=== PATIENT | female | born 1955 | race Hispanic/Latino ===

== ENCOUNTER 2020-01-12 09:00 | Inpatient (IN) | payer MEDICARE ==
[~2020-01-12] VITALS: Ht 154.9 cm; Wt 64.0 kg
[2020-02-29 11:47] LABS: BASOPHILS % (AUTO) 0.8 % (0.0-5.0); EOSINOPHILS % (AUTO) 1.8 % (0.0-8.0); HEMATOCRIT 42.4 % (36-48); LYMPHOCYTES % (AUTO) 31.1 % (21.0-51.0); MEAN CORPUSCULAR HEMOGLOBIN 31.5 pg (27.0-33.0); MEAN CORPUSCULAR HGB CONC 33.3 g/dL (32.0-36.0); MEAN CORPUSCULAR VOLUME 94.6 fL (79-99); MONOCYTES % (AUTO) 6.9 % (3.0-13.0); NEUTROPHILS % (AUTO) 59.3 % (40.0-77.0); PLATELET COUNT (AUTO) 249 K/uL (130-400); RED BLOOD CELL COUNT(AUTO) 4.48 MIL/uL (4.00-5.50); RED CELL DISTRIBUTION WIDTH 13.8 % (11.0-15.5); WHITE BLOOD COUNT (AUTO) 7.4 K/uL (4.8-10.8)
[2020-02-29 12:10] LABS: CREATININE 0.7 mg/dL (0.5-1.5); POTASSIUM 3.7 mmol/L (3.5-5.1)
[2020-02-29 12:28] LABS: INR 0.92 (0.85-1.15); PROTHROMBIN TIME 9.6 SEC (9.6-11.6)
[2020-02-29 14:42] VITALS: BP 151/68
[2020-03-01 09:16] LABS: APPEARANCE,URINE CLEAR (CLEAR); BILIRUBIN,URINE NEGATIVE (NEGATIVE); COLOR,URINE YELLOW (YELLOW); GLUCOSE, URINE (UA) NEGATIVE (NEGATIVE); KETONES,URINE NEGATIVE (NEGATIVE); LEUKOCYTE ESTERASE ,URINE NEGATIVE (NEGATIVE); NITRATE,URINE NEGATIVE (NEGATIVE); OCCULT BLOOD,URINE NEGATIVE (NEGATIVE); PROTEIN,URINE NEGATIVE (NEGATIVE); UROBILINOGEN,URINE 0.2 mg/dL (0.2-1.0)
[2020-03-02] MEDS ORDERED: IBUP-2077 PO (15:06)
[2020-03-02] MEDS ORDERED: LEVO50TA11 PO (15:06)
[2020-03-02] MEDS ORDERED: FLUO20TA29 PO (15:06)
[2020-03-05] VITALS (20 sets, daily range): BP systolic 101–143; BP diastolic 42–76
[2020-03-05] MEDS: CEFAZOLIN SODIUM 1 GM VIAL IVP SCH ×3 (06:00→17:59)
[2020-03-05] MEDS ORDERED: LACTATED RINGERS 1000ML 1,000 ML IV ONE (07:45)
[2020-03-05] MEDS ORDERED: SUCCINYLCHOLINE CHLORIDE 20 MG/ML 10 ML VIAL ONE (09:04)
[2020-03-05] MEDS ORDERED: LIDOCAINE PF 2% 5ML ABBOJECT ONE (09:04)
[2020-03-05] MEDS ORDERED: DEXAMETHASONE SOD PHOSPHATE 10MG/ML 1ML VIAL ONE (09:05)
[2020-03-05] MEDS ORDERED: MIDAZOLAM HCL 1 MG/ML 2ML VIAL ONE (09:05)
[2020-03-05] MEDS ORDERED: ONDANSETRON HCL 4 MG/2 ML VIAL ONE (09:05)
[2020-03-05] MEDS ORDERED: GLYCOPYRROLATE 1 MG/5 ML SYRINGE ONE (09:05)
[2020-03-05] MEDS ORDERED: PROPOFOL 10 MG/ML 20ML VIAL IV ONE (09:05)
[2020-03-05] MEDS ORDERED: NEOSTIGMINE 5MG/5ML SYR IV ONE (09:05)
[2020-03-05] MEDS ORDERED: ROCURONIUM 10MG/1ML SYR 10 MG/ML ML ONE ×2 (09:06→11:25)
[2020-03-05] MEDS ORDERED: FENTANYL CITRATE PF 50 MCG/1 ML 2ML VIAL ONE (09:06)
[2020-03-05] MEDS ORDERED: TRANEXAMIC ACID 1000MG/10ML ONE ×2 (09:09→12:20)
[2020-03-05] MEDS ORDERED: EPHEDRINE SULFATE 50 MG/ML AMPULE ONE (09:39)
[2020-03-05] MEDS: CEFAZOLIN SODIUM 1 GM VIAL ONE ×2 (10:21→10:37)
[2020-03-05] MEDS ORDERED: FENTANYL CITRATE PF 50 MCG/1 ML 5ML AMP IV ONE (10:38)
[2020-03-05] MEDS: SODIUM CHLORIDE 0.9% 1000ML 1,000 ML IV SCH (12:00)
[2020-03-05] MEDS ORDERED: POTASSIUM CHLORIDE 10% ELIXIR 20 MEQ/15 ML UDCUP PO PRN (12:00)
[2020-03-05] MEDS ORDERED: FERROUS FUMARATE 324 MG TABLET PO PRN (12:00)
[2020-03-05] MEDS: ACETAMINOPHEN EXTRA STRENGTH 500 MG TABLET PO SCH ×2 (12:00→20:48)
[2020-03-05] MEDS ORDERED: KETOROLAC TROMETHAMINE 15MG/ML IV PRN (12:00)
[2020-03-05] MEDS ORDERED: LIDOCAINE HCL-MPF 1% 2ML VIAL IV PRN (12:00)
[2020-03-05] MEDS ORDERED: POTASSIUM CHLORIDE 20MEQ/100ML 100 ML IV PRN (12:00)
[2020-03-05] MEDS ORDERED: DiphenhydrAMINE HCL 50 MG/ML VIAL IVP PRN (12:00)
[2020-03-05] MEDS ORDERED: OXYCODONE HCL 5 MG TAB PO PRN (12:00)
[2020-03-05] MEDS ORDERED: CALCIUM CARBONATE 500 MG TABLET PO PRN (12:00)
[2020-03-05] MEDS ORDERED: TRAMADOL HCL 50 MG TABLET PO PRN (12:00)
[2020-03-05] MEDS ORDERED: ONDANSETRON HCL 4 MG/2 ML VIAL IVP PRN (12:00)
[2020-03-05] MEDS ORDERED: TEMAZEPAM 15 MG CAPSULE PO PRN (12:00)
[2020-03-05] MEDS ORDERED: POTASSIUM CHLORIDE 20 MEQ ERTAB PO PRN (12:00)
[2020-03-05] MEDS: PREGABALIN 25 MG CAP PO SCH (20:48)
[2020-03-05] MEDS: FAMOTIDINE 20MG TAB 20 MG TAB PO SCH (20:48)
[2020-03-05] MEDS: ASPIRIN 81MG TAB.CHEW PO SCH (20:48)
[2020-03-05] MEDS: CELECOXIB 200 MG CAP PO SCH (20:48)
[2020-03-06] MEDS: CEFAZOLIN SODIUM 1 GM VIAL IVP SCH (00:04)
[2020-03-06 03:44] LABS: HEMATOCRIT 32.4 % (36-48); MEAN CORPUSCULAR HEMOGLOBIN 30.7 pg (27.0-33.0); MEAN CORPUSCULAR VOLUME 93.1 fL (79-99); RED BLOOD CELL COUNT(AUTO) 3.48 MIL/uL (4.00-5.50); RED CELL DISTRIBUTION WIDTH 13.9 % (11.0-15.5); WHITE BLOOD COUNT (AUTO) 11.3 K/uL (4.8-10.8)
[2020-03-06 03:50] VITALS: BP 115/58
[2020-03-06 03:59] LABS: CREATININE 0.5 mg/dL (0.5-1.5)
[2020-03-06] MEDS ORDERED: LEVOTHYROXINE 50 MCG TABLET ONE (04:51)
[2020-03-06] MEDS: ACETAMINOPHEN EXTRA STRENGTH 500 MG TABLET PO SCH ×3 (05:00→21:18)
[2020-03-06] MEDS: LEVOTHYROXINE 50 MCG TABLET PO SCH (06:30)
[2020-03-06] MEDS: SODIUM CHLORIDE 0.9% 1000ML 1,000 ML IV SCH (08:00)
[2020-03-06 08:42] VITALS: BP 119/59
[2020-03-06] MEDS: POLYETHYLENE GLYCOL 3350 17 GM POWD.PACK PO SCH (09:57)
[2020-03-06] MEDS: FAMOTIDINE 20MG TAB 20 MG TAB PO SCH ×2 (09:57→21:18)
[2020-03-06] MEDS: FLUOXETINE HCL 20 MG CAPSULE PO SCH (09:57)
[2020-03-06] MEDS: ASPIRIN 81MG TAB.CHEW PO SCH ×2 (09:57→21:18)
[2020-03-06] MEDS: CELECOXIB 200 MG CAP PO SCH ×2 (09:57→21:18)
[2020-03-06] MEDS: PREGABALIN 25 MG CAP PO SCH ×2 (09:57→21:18)
[2020-03-06 11:38] VITALS: BP 118/68
--- NOTE | 2020-03-06 15:25 | NUR ---
INITIAL ASSESSMENT WITH PATIENT AT BEDSIDE- MET WITH PATIENT FOR D/C PLANNING. LIVES WITH SPOUSE, HOME SAFE & ACCESSIBLE, NO DME, SPOUSE DRIVES VERBAL CONSENT FOR HH AND DME IN NETWORK CHECKED WITH AND [facility], BOTH MATEO HARRY, WILL SEND REFERRAL Addendum: 03/06/20 at 1530 by DI CLAYTON RN CM Amended: Links added.
[2020-03-06] MEDS: OXYCODONE HCL 5 MG TAB PO PRN (17:21)
[2020-03-06 20:16] VITALS: BP 119/51
[2020-03-07 00:16] VITALS: BP 114/50
[2020-03-07 04:16] VITALS: BP 106/56
[2020-03-07] MEDS: LEVOTHYROXINE 50 MCG TABLET PO SCH (06:20)
[2020-03-07] MEDS: ACETAMINOPHEN EXTRA STRENGTH 500 MG TABLET PO SCH ×2 (06:20→11:28)
[2020-03-07 08:14] VITALS: BP 124/58
[2020-03-07] MEDS: POLYETHYLENE GLYCOL 3350 17 GM POWD.PACK PO SCH (08:43)
[2020-03-07] MEDS: OXYCODONE HCL 5 MG TAB PO PRN ×2 (08:43→12:50)
[2020-03-07] MEDS: CELECOXIB 200 MG CAP PO SCH (08:47)
[2020-03-07] MEDS: ASPIRIN 81MG TAB.CHEW PO SCH (08:47)
[2020-03-07] MEDS: FLUOXETINE HCL 20 MG CAPSULE PO SCH (08:48)
[2020-03-07] MEDS: FAMOTIDINE 20MG TAB 20 MG TAB PO SCH (08:48)
[2020-03-07] MEDS: PREGABALIN 25 MG CAP PO SCH (08:48)
[2020-03-07 12:07] VITALS: BP 133/63
--- NOTE | 2020-03-07 12:08 | NUR ---
ACCEPTED AT [facility] FOR START TOMORROW FOLLOWED UP WITH FRANCK, WILL DELIVER BRIAN TO DAY. CHART TAGGED Addendum: 03/07/20 at 1213 by DI CLAYTON RN CM Amended: Links added.
[2020-03-07] MEDS ORDERED: HYDR-4457 PO (14:56)
[2020-03-07] MEDS ORDERED: ASPI-1005 PO (14:56)
--- NOTE | 2020-03-07 16:00 | NUR ---
SPOKE WITH PT'S DAUGHTER RE D/C HOME AND CIRCULAR SAW FILER JEROMY, DAUGHTER, SAID SHE WOULD NOT BE ABLE TO COME FOR PATIENT UNTIL AFTER 7:30P.M. DUE TO HER WORK. DAUGHTER SAID SHE WOULD PICK HER UP AFTER 7:30 P.M.
[2020-03-07 16:30] VITALS: BP 103/52
--- NOTE | 2020-03-07 16:35 | NUR ---
DISCHARGE INSTRUCTIONS GIVEN AND EXPLAINED UTILIZING TEACH BACK METHOD, VERBALIZED UNDERSTANDING. DISCHARGE WITH [facility]. REPORT GIVEN TO JESSIE CRAMER RN. [phone] METZGER ON 03/28/20 @10:15 A.M. CALL OFFICE FOR ANY CONCERNS 02/02. [phone] RESUME YOUR PREVIOUS HOME DIET. RESUME YOUR PREVIOUS HOME MEDS IF ANY INSTRUCTED BY STAFF. PLEASE TAKE PRESCRIPTIONS MEDS INSTRUCTED. IF YOU NEED A PRESCRIPTION REFILL ON YOUR PAIN MEDS. PLEASE CALL OFFICE A FEW DAYS BEFORE YOU TAKE YOUR LAST PAIN PILL. NURSE TO REMOVE DRESSING ON 03/12/20. CONTINUE DAILY DRESSING CHANGES IF NEEDED AFTER 1ST REMOVAL. MAY SHOWER AND GET DRESSING WET. FOLLOW NURSE INSTRUCTIONS TO PROTECT DRESSING'S BATTERY. AMBULATE TOLERATED WITH THE USE OF CRUTCHES OR WALKER UNTIL YOU'RE ABLE TO WALK INDEPENDENTLY. WHEN RESTING, KEEP YOUR LEG ELEVATED BUT AVOID PLACING PILLOW(S) UNDER YOUR KNEES. FOLLOW PHYSICAL THERAPIST RECOMMENDATIONS/INSTRUCTIONS. GAIT TRAINING WITH WALKER AND WEIGHT BEARING TOLERATED. ADVANCE TO CANE PER NURSE/THERAPIST DISCRETION. ACTIVE/PASSIVE ASSISTED FLEXION/EXTENSION EXERCISES TO OPERATIVE KNEE(S). DO QUADRICEP/HAMSTRING STRENGTHENING EXERCISES TO OPERATIVE KNEE(S). MODALITIES PER PHYSICAL THERAPIST DISCRETION. CALL 911 OR GO TO EMERGENCY ROOM IF YOU HAVE ANY CHEST PAIN/DISCOMFORT, SHORTNESS OF BREATH/DIFFICULTY BREATHING OR NEEDED. EXPLAINED PROCEDURE FOR CHANGING DRESSING. VERBALIZED UNDERSTANDING. REMOVED OLD CRISTINE DRESSING, NO ACTIVE DRAINAGE. CLEANSED WITH BETADINE. APPLIED CRISTINE DRESSING. TOLERATED PROCEDURE WELL.
--- NOTE | 2020-03-07 19:30 | NUR ---
SPOKE WITH DAUGHTER, JEROMY SAID SHE WAS ON HER WAY TO DESK DIRECTOR HER MOM. DISCHARGE INSTRUCTIONS GIVEN AND EXPLAINED UTILIZING TEACH BACK METHOD REGARDING PATIENT, VERBALIZED UNDERSTANDING.
[2020-03-08] MEDS ORDERED: BISACODYL 10 MG SUPP.RECT RC PRN (12:00)
== END 2020-03-07 20:35 | disposition home health service (06) | DRG 470 ==
LOC: EDSTATUS 02-29 10:00 → DAHIP 03-05 07:21 → 3AH 03-05 13:08
PROVIDERS: ADMIT Orthopaedic Surgery; ATTEND Orthopaedic Surgery
PROC: 0SRC0J9 Replacement of Right Knee Joint with Synthetic Substitute, Cemented, Open Approach (ICD-10-PCS; principal; 2020-03-05 09:23)
DX: M17.11 Unilateral primary osteoarthritis, right knee (principal); E03.9 Hypothyroidism, unspecified; G89.29 Other chronic pain; Z20.828 Contact with and (suspected) exposure to other viral communicable diseases
CPT/HCPCS: 36415; 80048; 81003; 85025; 85027; 85610; 87641; 88305; 88311; 97039; G0378; J0330; J0690; J1100; J2001; J2250; J2405; J2704; J2710; J3010; J3490; J7120; U0003